=== PATIENT | male | born 1970 | race African-American/Black ===

== ENCOUNTER 2020-09-23 16:04 | Emergency (ER) | payer OTHER ==
[~2020-09-23] VITALS: Ht 175.3 cm; Wt 90.7 kg
--- NOTE | 2020-09-23 16:10 | NUR ---
Dr Corrales at the bedside for MSE.
[2020-09-23 17:09] LABS: *BILIRUBIN,URIN 1+ (NEGATIVE); *CLARITY,URINE CLEAR (CLEAR); *COLOR,URINE YELLOW (YELLOW); *KETONES,URINE NEGATIVE (NEGATIVE); *UROBILINOGEN,URINE 0.2 E.U./dl (NORMAL); LEUKOCYTE ESTERASE ,URINE NEGATIVE (NEGATIVE); NITRITE, URINE NEGATIVE (NEGATIVE); PH,URINE 5.5 (5.0-8.0); UGLUCOSE NEGATIVE (NEGATIVE)
[2020-09-23 17:12] LABS: *BLOOD, URINE TRACE INTACT (NEGATIVE)
[2020-09-23 17:15] LABS: *AMPHETAMINE, URINE NEGATIVE (NEGATIVE); *CANNABINOID, URINE NEGATIVE (NEGATIVE); *COCCAINE, URINE POSITIVE (NEGATIVE); *OPIATE, URINE NEGATIVE (NEGATIVE); *PHENCYCLIDINE SCREEN,URINE NEGATIVE (NEGATIVE)
[2020-09-23 17:42] LABS: BASOPHILS % (AUTO) 0.4 % (0.0-2.0); EOSINOPHILS # (AUTO) 0.2 K/uL (0.0-0.7); HEMATOCRIT 36.8 % (36.7-47.1); LYMPHOCYTES # (AUTO) 1.9 K/uL (20.0-40.0); LYMPHOCYTES % (AUTO) 23.3 % (20.5-51.5); MEAN CORPUSCULAR HGB CONC 33 g/dL (32.5-36.3); MEAN CORPUSCULAR VOLUME 94.6 fL (73.0-96.2); MONOCYTES # (AUTO) 0.8 K/uL (2.0-10.0); MONOCYTES % (AUTO) 9.5 % (0.0-11.0); NEUTROPHILS # (AUTO) 5.2 K/uL (1.8-8.9); NEUTROPHILS % (AUTO) 63.8 % (38.5-71.5); PLATELET COUNT (AUTO) 327 K/uL (152-348); RED BLOOD CELL COUNT(AUTO) 3.89 MIL/uL (4.06-5.63); WHITE BLOOD COUNT (AUTO) 8.1 K/uL (3.6-10.2)
[2020-09-23 17:51] LABS: CARBON DIOXIDE 24 mmol/L (21-32); CHLORIDE 104 mmol/L (98-107); CREATININE 1.4 mg/dL (0.6-1.3); GLUCOSE 123 mg/dL (74-106); POTASSIUM 3.7 mmol/L (3.5-5.1); UREA NITROGEN, BLOOD 14 mg/dL (7-18)
[2020-09-23 17:56] LABS: ALANINE AMINOTRANSFERASE 26 U/L (16-63); ALKALINE PHOSPHATASE 86 U/L (50-136); ASPARTATE AMINOTRANSFERASE 27 U/L (15-37); BILIRUBIN,DIRECT 0.1 mg/dL (0.0-0.2); BILIRUBIN,TOTAL 0.4 mg/dL (0.2-1.0); ETHANOL < 3 MG/DL (0-0); TOTAL PROTEIN, SERUM 7.9 g/dL (6.4-8.2)
[2020-09-23 17:57] LABS: ACETAMINOPHEN < 2.0 ug/mL (10-30)
--- NOTE | 2020-09-23 18:20 | NUR ---
Patient is resting comfortably in bed with eyes closed, NAD noted.
--- NOTE | 2020-09-23 18:25 | NUR ---
Pt is medically cleared by Dr Corrales. Called Marissa Guerrero RN for psych eval.
--- NOTE | 2020-09-23 19:55 | NUR ---
Pinky from [facility] will come. ETA is 1hr.
[2020-09-23] MEDS ORDERED: ENOXAPARIN SODIUM 40 MG/0.4 ML DISP.SYRIN SQ ONE (20:28)
--- NOTE | 2020-09-24 03:43 | NUR ---
Veronika intake from [facility] called. Unable to accept patient at this time due to no staff available to recieve patient. Veronika will have morning intake to follow up with bed availability.
[2020-09-24 03:48] LABS: BACTERIA,URINE MANY /HPF (NONE SEEN); RBC,URINE 0-3 /HPF (0-3); SQUAMOUS EPITHELIAL CELL,UR FEW /HPF (NONE SEEN); WBC,URINE 0-3 /HPF (0-3)
--- NOTE | 2020-09-24 07:20 | NUR ---
Received report from Wong [place]. Pt is sleeping with NAD noted. Pending callback from [facility] regarding transfer information per report.
--- NOTE | 2020-09-24 08:30 | NUR ---
Pt given breakfat tray, NAD noted, pending trans info.
--- NOTE | 2020-09-24 10:29 | NUR ---
This SW called central intake at [facility], spoke with Jaciel, . ARAMIS inquired about status of referral for patient. Jaciel stated he will be following up on the status, and either he or an intake sales representative wire rope will call this SW back. ARAMIS provided this SW's call back number to Jaciel.
--- NOTE | 2020-09-24 12:19 | NUR ---
12:10pm: ARAMIS received a voicemail message from Renee in Intake at [facility], , requesting physician's note stating patient has been medically cleared. ARAIMS faxed physician's note with information requested, fax # [phone]. 12:17pm: ARAMIS called Intake at [facility], , and spoke with KATEY, who confirmed receipt of above stated fax. KATEY stated he will be forwarding this information to charge nurse, who will review and get back to this SW.
--- NOTE | 2020-09-24 12:49 | NUR ---
12:47pm: SW received a call from Renee at Intake at [facility]. Renee stated that patient has been approved for inpatient psychiatric admissions. Admitting physician will be Dr. Holman, and patient will be assigned to Room 302A. Renee asked for ED nurse to call for a nurse to nurse report, , after which patient can be transferred by ambulance to [facility], [address] [place] [address]. [place] [address].
--- NOTE | 2020-09-24 13:01 | NUR ---
12:58pm: This SW spoke with ED RN Jaciel and informed him that patient has been accepted to [facility]. All admission information provided to Jaciel (see previous SS note). Jaciel to call for nurse to nurse report, and then will arrange for ambulance to transport patient to [facility], [address] [facility] [place] [address].
--- NOTE | 2020-09-24 13:10 | NUR ---
Received telephone call from Unruly (material worker) who stated pt has been accepted at [facility] ([address] [facility] [address]). accepting, pt will be going to room 302-A, call [phone] for report.
--- NOTE | 2020-09-24 13:20 | NUR ---
Called [facility] for transport, eta 30 mins . Pt eating lunch, NAD noted.
--- NOTE | 2020-09-24 13:39 | NUR ---
SBAR telephone report given to Shadi at [facility].
--- NOTE | 2020-09-24 13:40 | NUR ---
Pt was told to wait in the ER waiting room by the charge nurse Elaine.
--- NOTE | 2020-09-24 14:07 | NUR ---
PT ELOPED FROM WAITING ROOM BEFORE TRANSPORT TEM ARRIVED WHICH WAS AT [id number].
--- NOTE | 2020-09-24 14:09 | NUR ---
[facility] here to burr picker pt. Pt was not found in ER waiting room, main lobby or outside ER. Charge nurse notified.
--- NOTE | 2020-09-24 14:11 | NUR ---
PT WAS NOT ON HOLD AND HAS PLANNED TO GO VOLUNTARILY TO ADMITTING HOSPITAL.
== END 2020-09-24 14:10 | disposition left against medical advice (07) ==
LOC: ER 16:07
DX: F29 Unspecified psychosis not due to a substance or known physiological condition (principal); R45.851 Suicidal ideations; Z82.49 Family history of ischemic heart disease and other diseases of the circulatory system; F14.90 Cocaine use, unspecified, uncomplicated; Z20.828 Contact with and (suspected) exposure to other viral communicable diseases
CPT/HCPCS: 36415; 85025; 87086; A4663; G0480; J1650

== ENCOUNTER 2023-09-28 12:44 | Emergency (ER) | payer OTHER ==
[~2023-09-28] VITALS: Ht 175.3 cm; Wt 97.5 kg
[2023-09-28] MEDS ORDERED: QUET200T PO (13:04)
[2023-09-28] MEDS ORDERED: SERT50TA PO (13:04)
[2023-09-28] MEDS ORDERED: TRAZ-257 PO (13:04)
[2023-09-28 13:32] LABS: BASOPHILS % (AUTO) 0.5 % (0.0-2.0); EOSINOPHILS # (AUTO) 0.1 K/uL (0.0-0.7); EOSINOPHILS % (AUTO) 0.9 % (0.0-7.0); LYMPHOCYTES # (AUTO) 1.3 K/uL (0.8-4.8); LYMPHOCYTES % (AUTO) 16.9 % (20.5-51.5); MEAN CORPUSCULAR HEMOGLOBIN 30.2 uug (23.8-33.4); MEAN CORPUSCULAR HGB CONC 33 g/dL (32.5-36.3); MEAN CORPUSCULAR VOLUME 90.2 fL (73.0-96.2); MONOCYTES # (AUTO) 0.7 K/uL (0.1-1.30); MONOCYTES % (AUTO) 9.2 % (0.0-11.0); NEUTROPHILS # (AUTO) 5.7 K/uL (1.8-8.9); NEUTROPHILS % (AUTO) 72.5 % (38.5-71.5); PLATELET COUNT (AUTO) 394 K/uL (152-348); RED BLOOD CELL COUNT(AUTO) 3.66 MIL/uL (4.06-5.63); RED CELL DISTRIBUTION WIDTH 15.3 % (12.1-16.2); WHITE BLOOD COUNT (AUTO) 7.9 K/uL (3.6-10.2)
[2023-09-28 13:45] LABS: ALANINE AMINOTRANSFERASE 30 U/L (16-63); ALBUMIN 3.8 g/dL (3.4-5.0); ALKALINE PHOSPHATASE 96 U/L (50-136); ASPARTATE AMINOTRANSFERASE 28 U/L (15-37); BILIRUBIN,DIRECT 0.1 mg/dL (0.0-0.2); BILIRUBIN,TOTAL 0.4 mg/dL (0.2-1.0); CALCIUM 9.4 mg/dL (8.5-10.1); CARBON DIOXIDE 26 mmol/L (21-32); CHLORIDE 99 mmol/L (98-107); CREATININE 1.2 mg/dL (0.6-1.3); GLUCOSE 191 mg/dL (74-106); POTASSIUM 3.9 mmol/L (3.5-5.1); SODIUM SERUM 133 mmol/L (136-145); TOTAL PROTEIN, SERUM 8.7 g/dL (6.4-8.2); UREA NITROGEN, BLOOD 29 mg/dL (7-18)
[2023-09-28 13:55] LABS: THYROID STIMULATING HORMONE 1.745 mIU/mL (0.358-3.740)
[2023-09-28 14:03] LABS: DIFFERENTIAL COMMENT 1
[2023-09-28 14:37] LABS: ETHANOL < 3 MG/DL (0-10)
[2023-09-28 18:36] VITALS: O2SAT 98
[2023-09-28 19:48] LABS: *BILIRUBIN,URIN NEGATIVE (NEGATIVE); *BLOOD, URINE 1+ (NEGATIVE); *CLARITY,URINE CLEAR (CLEAR); *COLOR,URINE YELLOW (YELLOW); *KETONES,URINE NEGATIVE (NEGATIVE); *PROTEIN,URINE TRACE (NEGATIVE); *UROBILINOGEN,URINE 0.2 E.U./dl (NORMAL); LEUKOCYTE ESTERASE ,URINE TRACE (NEGATIVE); NITRITE, URINE NEGATIVE (NEGATIVE); UGLUCOSE NEGATIVE (NEGATIVE)
[2023-09-28 19:59] LABS: BACTERIA,URINE FEW /HPF (NONE SEEN)
[2023-09-28 20:00] LABS: SQUAMOUS EPITHELIAL CELL,UR NONE SEEN /HPF (NONE SEEN)
[2023-09-28 20:02] LABS: *AMPHETAMINE, URINE NEGATIVE (NEGATIVE); *BARBITURATE, URINE NEGATIVE (NEGATIVE); *BENZODIAZEPINE, URINE NEGATIVE (NEGATIVE); *CANNABINOID, URINE NEGATIVE (NEGATIVE); *COCCAINE, URINE POSITIVE (NEGATIVE); *OPIATE, URINE NEGATIVE (NEGATIVE); *PHENCYCLIDINE SCREEN,URINE NEGATIVE (NEGATIVE)
[2023-09-28 20:03] LABS: FENTANYL, URINE NEGATIVE (NEGATIVE)
== END 2023-09-29 02:09 ==
LOC: ER 12:44
DX: R45.851 Suicidal ideations (principal); F29 Unspecified psychosis not due to a substance or known physiological condition; J45.909 Unspecified asthma, uncomplicated; F31.9 Bipolar disorder, unspecified; F32.A Depression, unspecified; Z20.822 Contact with and (suspected) exposure to COVID-19; Z79.899 Other long term (current) drug therapy; Z59.00 Homelessness unspecified; Z88.0 Allergy status to penicillin
CPT/HCPCS: 36415; 84443; 85025; A4606; A4663; G0480